=== PATIENT | female | born 1940 | race Caucasian/White ===

== ENCOUNTER 2018-01-02 10:29 | Emergency (ER) | payer OTHER ==
[~2018-01-02] VITALS: Ht 162.6 cm; Wt 115.9 kg
[~2018-01-02 10:29] MED LIST: ALIGN4 MG PO; ASCORBIC ACID500 M3 PO; BACTRIM,SEPT1 TABLET; BISOPROLOL FUMAR5 MG PO; Bactrim,Septra Singl PO; CARDIZEM CD120 MG PO; CELEBREX200 MG PO; COLACE100 MG PO; COUMADIN5 MG PO; COUMADIN6 MG PO; Cardizem CD,Cartia X PO; DIGOXIN125 MCG PO; DILTIAZEM 24HR120 MG PO; DILTIAZEM CAP 120 PO; DOCUSATE SODIU100 MG PO; DOXYCYCLINE HY100 MG PO; FOLIC ACID1 MG PO; FUROSEMIDE40 MG PO; HYDROCODON-ACE1 EAC7 PO; JANTOVEN5 MG PO; LANOXIN125 MCG PO; LASIX40 MG PO; MELOXICAM15 MG; MELOXICAM15 MG PO; METOLAZONE5 MG PO; PANTOPRAZOLE SO40 MG PO; PAROXETINE HCL10 MG PO; PAROXETINE HCL20 MG PO; POTASSIUM CHLO20 ME1 PO; PREDNISONE20 MG PO; Paxil PO; SENNA-TIME S T1 EACH PO; THERAGRAN1 TABLET PO; TYLENOL EXTRA500 MG PO; VENTOLIN HFA18 GM IH; WARFARIN SODIU7.5 MG; WARFARIN SODIUM1 MG PO; WARFARIN SODIUM6 MG PO
[2018-01-02 11:26] LABS: BASOPHIL (%) 1.1 % (0-1); BASOPHIL COUNT 0.1 K/uL (0-0.1); EOSINOPHIL COUNT 0.2 K/uL (0-0.3); HEMATOCRIT 35.6 % (36.0-46.0); HEMOGLOBIN 11.8 G/DL (11.9-15.5); IMMATURE GRANULOCYTE (%) 0.4 % (0.0-0.7); LYMPHOCYTE (%) 14.6 % (15-42); LYMPHOCYTE COUNT 0.8 K/uL (1.0-2.8); MCH 31.1 PG (29.0-34.0); MCHC 33.1 G/DL (30.0-36.0); MCV 93.7 FL (83-99); MONOCYTE COUNT 0.5 K/uL (0-0.8); NEUTROPHIL (%) 72.9 % (45-76); NEUTROPHIL COUNT 4.1 K/uL (1.8-6.4); PLATELET COUNT 230 K/uL (156-360); RBC DIS.WIDTH-CV 12.9 % (11.8-14.6); RBC DIS.WIDTH-SD 44.4 % (39-53); WHITE BLOOD COUNT 5.6 K/uL (4.1-10.2)
[2018-01-02 11:35] LABS: INTER. NORMALIZED RATIO 3.3
[2018-01-02 11:38] LABS: CHLORIDE 105 mEq/L (99-109); POTASSIUM 4.5 mEq/L (3.7-5.4); SODIUM 142 mEq/L (136-147)
[2018-01-02 11:40] LABS: GLUCOSE 105 mg/dL (70-99)
[2018-01-02 11:44] LABS: GFR ESTIMATE (CALCULATED) 57 mL/min/
[2018-01-02 11:45] LABS: UREA NITROGEN (BUN) 17 mg/dL (9-23)
[2018-01-02] MEDS ORDERED: PERCOCET 5/31 TABLET PO (12:52)
[2018-01-02 13:47] VITALS: BP 145/75
== END 2018-01-02 13:54 | disposition home or self-care (01) ==
LOC: EME 10:29
PROVIDERS: Emergency Medicine
DX: M54.5 Low back pain (principal); G89.29 Other chronic pain; R26.9 Unspecified abnormalities of gait and mobility; G47.00 Insomnia, unspecified; M85.88 Other specified disorders of bone density and structure, other site; J45.909 Unspecified asthma, uncomplicated; I10 Essential (primary) hypertension; Z95.0 Presence of cardiac pacemaker; Z79.01 Long term (current) use of anticoagulants; Z87.891 Personal history of nicotine dependence
CPT/HCPCS: 72100; 80048; 81003; 85025; 85610; 99281; 99285; J3010

== ENCOUNTER 2018-03-27 08:15 | Emergency (ER) | payer OTHER ==
[~2018-03-27] VITALS: Ht 165.1 cm; Wt 121.8 kg
[~2018-03-27 08:15] MED LIST changes: +PERCOCET 5/31 TABLET PO
[2018-03-27 08:50] LABS: HEMATOCRIT 35.6 % (36.0-46.0); HEMOGLOBIN 11.7 G/DL (11.9-15.5); MCH 30.5 PG (29.0-34.0); MCHC 32.9 G/DL (30.0-36.0); MCV 92.7 FL (83-99); PLATELET COUNT 208 K/uL (156-360); RBC DIS.WIDTH-CV 14.4 % (11.8-14.6); RBC DIS.WIDTH-SD 48.5 % (39-53); RED BLOOD COUNT 3.84 M/uL (3.80-5.20); WHITE BLOOD COUNT 6.7 K/uL (4.1-10.2)
[2018-03-27 08:56] LABS: INTER. NORMALIZED RATIO 2.3
[2018-03-27 09:09] LABS: CHLORIDE 106 mEq/L (99-109); POTASSIUM 4.3 mEq/L (3.7-5.4); SODIUM 141 mEq/L (136-147)
[2018-03-27 09:11] LABS: GLUCOSE 108 mg/dL (70-99)
[2018-03-27 09:14] LABS: GFR ESTIMATE (CALCULATED) 57 mL/min/
[2018-03-27 09:15] LABS: UREA NITROGEN (BUN) 20 mg/dL (9-23)
[2018-03-27 11:20] VITALS: BP 140/73
== END 2018-03-27 11:26 | disposition home or self-care (01) ==
LOC: EME 08:15
PROVIDERS: Family Medicine
DX: R60.0 Localized edema (principal); R53.1 Weakness; I50.9 Heart failure, unspecified; I48.91 Unspecified atrial fibrillation; I71.9 Aortic aneurysm of unspecified site, without rupture; I10 Essential (primary) hypertension; F41.9 Anxiety disorder, unspecified; J45.909 Unspecified asthma, uncomplicated; Z79.01 Long term (current) use of anticoagulants; Z95.0 Presence of cardiac pacemaker; Z85.9 Personal history of malignant neoplasm, unspecified; Z87.891 Personal history of nicotine dependence; Z88.1 Allergy status to other antibiotic agents; Z88.2 Allergy status to sulfonamides; Z88.0 Allergy status to penicillin; Z88.8 Allergy status to other drugs, medicaments and biological substances
CPT/HCPCS: 71046; 80048; 83880; 85027; 85610; 93005; 99281; 99284